=== PATIENT | female | born 2000 | race Caucasian/White ===

== ENCOUNTER 2021-11-18 09:13 | Emergency (ER) | payer SELFPAY ==
[~2021-11-18] VITALS: Ht 160 cm; Wt 65.0 kg
[2021-11-18 09:21] VITALS: BP 116/69
[2021-11-18 12:12] LABS: CLARITY URINE CLOUDY (CLEAR); COLOR URINE YELLOW (YELLOW); KETONES URINE TRACE (NEGATIVE); LEUKOCYTE ESTERASE URINE NEGATIVE (NEGATIVE); NITRITE URINE NEGATIVE (NEGATIVE); OCCULT BLOOD URINE NEGATIVE (NEGATIVE); PH URINE 5.5 (4.5-8.0); PROTEIN URINE TRACE (NEGATIVE); UROBILINOGEN URINE 0.2 E.U./dL (0.2-1.0)
[2021-11-18] MEDS ORDERED: METR-167 MT (13:17)
[2021-11-18] MEDS ORDERED: IRON1TAB68 MT (13:17)
[2021-11-21 04:08] LABS: NEISSERIA GONORRHOEAE NAA Negative (Negative)
== END 2021-11-18 13:45 | disposition home or self-care (01) ==
LOC: ER 09:13 → EDBD 09:13 → ER 13:45
DX: O26.891 Other specified pregnancy related conditions, first trimester (principal); Z3A.08 8 weeks gestation of pregnancy; N76.0 Acute vaginitis; O99.511 Diseases of the respiratory system complicating pregnancy, first trimester
CPT/HCPCS: 36415; 76801; 81003; 81025; 84702; 87210; 87491; 87591; 99284